=== PATIENT | female | born 1975 | race American Indian/Alaskan Native ===

== ENCOUNTER 2018-02-05 08:49 | Emergency (ER) | payer SELFPAY ==
[2018-02-05 09:23] VITALS: BP 130/81
--- NOTE | 2018-02-05 10:08 | Emergency Department Report ---
Blank Doc - Documentation Documentation: Patient is a 42-year-old Female states that she stood up this morning and felt a wave of dizziness as well as some tingling in the right upper extremity. Patient also felt as though her hand was drawn in. Patient states this has happened before but only lasts usually for several seconds and only after standing. Today it lasted almost 30 seconds before she started to feel normal again. The patient is having no deficits at this time. Brief physical exam patient has a normal neurological exam with normal strength and sensation with evidence of any neglect. Her coordination was within normal limits for cranial nerves are within normal limits. Patient will have electrolytes checked as well as orthostatics and patient will be reassessed by the [facility]
[2018-02-05 10:44] LABS: Basophils # (Auto) 0.1 K/mm3 (0.0-0.1); Eosinophils # (Auto) 0.1 K/mm3 (0.0-0.4); Hematocrit 41.5 % (30.3-42.9); Hemoglobin 13.7 gm/dl (10.1-14.3); Lymphocytes # (Auto) 1.8 K/mm3 (1.2-5.4); Lymphocytes % (Auto) 30.5 % (13.4-35.0); Mean Corpuscular HGB Conc 33 % (30-34); Mean Corpuscular Hemoglobin 30 pg (28-32); Mean Corpuscular Volume 92 fl (79-97); Monocytes # (Auto) 0.4 K/mm3 (0.0-0.8); Monocytes % (Auto) 6.8 % (0.0-7.3); Platelet Count 209 K/mm3 (140-440); Red Blood Count 4.51 M/mm3 (3.65-5.03); Red Cell Distribution Width 14.4 % (13.2-15.2)
--- NOTE | 2018-02-05 10:55 | Emergency Department Report ---
ED Abdominal Pain HPI - General Chief Complaint: Medical Clearance Stated Complaint: DIZZINESS Time Seen by Provider: 02/05/18 09:58 Source: patient Mode of arrival: Ambulatory Limitations: No Limitations - History of Present Illness Initial Comments: Patient is a 42-year-old Female states that she stood up this morning and felt a wave of dizziness as well as some tingling in the right upper extremity. Patient also felt as though her hand was drawn in. Patient states this has happened before but only lasts usually for several seconds and only after standing. Today it lasted almost 30 seconds before she started to feel normal again. The patient is having no deficits at this time. Brief physical exam patient has a normal neurological exam with normal strength and sensation with evidence of any neglect. Her coordination was within normal limits for cranial nerves are within normal limits. Patient will have electrolytes checked as well as orthostatics and patient will be reassessed by the [facility] - Related Data Previous Rx's Medication Instructions Recorded Last Taken Type Acetaminophen/Codeine 1 tab PO Q6H PRN #15 tab 07/31/14 Unknown Rx [Acetaminophen-Codeine #3 TAB] Diclofenac [Marylou Jimenez] 75 mg PO TID #21 tablet 07/31/14 Unknown Rx methOCARBAMOL [Robaxin] 500 mg PO Q6H PRN #20 tablet 07/31/14 Unknown Rx Allergies Allergy/AdvReac Type Severity Reaction Status Date / Time No Known Allergies Allergy Unverified 07/31/14 10:24 ED Review of Systems ROS: Stated complaint: DIZZINESS Other details as noted in HPI ED Past Medical Hx - Past Medical History Previous Medical History?: No - Surgical History Past Surgical History?: Yes Additional Surgical History: tonsillectomy. breast reduction/lift 12/2016 - Social History Smoking Status: Never Smoker Substance Use Type: None - Medications Home Medications: Home Medications Medication Instructions Recorded Confirmed Last Taken Type Acetaminophen/Codeine 1 tab PO Q6H PRN #15 tab 07/31/14 Unknown Rx [Acetaminophen-Codeine #3 TAB] Diclofenac [Marylou Jimenez] 75 mg PO TID #21 tablet 07/31/14 Unknown Rx methOCARBAMOL [Robaxin] 500 mg PO Q6H PRN #20 tablet 07/31/14 Unknown Rx ED Physical Exam - General Limitations: No Limitations ED Course Vital Signs 02/05/18 09:20 Temperature 98.4 F Pulse Rate 70 Respiratory 16 Rate Blood Pressure 130/81 O2 Sat by Pulse 100 Oximetry ED Medical Decision Making - Lab Data Result diagrams: 02/05/18 10:30 Critical care attestation.: If time is entered above; I have spent that time in minutes in the direct care of this critically ill patient, excluding procedure time. ED Disposition Condition: Stable Referrals: PRIMARY CARE, [Primary Care Provider] - 3-5 Days
--- NOTE | 2018-02-05 10:56 | Emergency Department Report ---
ED Dizziness HPI - General Chief Complaint: Medical Clearance Stated Complaint: DIZZINESS Time Seen by Provider: 02/05/18 09:58 Source: patient Mode of arrival: Ambulatory Limitations: No Limitations - History of Present Illness Initial Comments: Patient is a 42-year-old Female states that she stood up this morning and felt a wave of dizziness as well as some tingling in the right upper extremity. Patient also felt as though her hand was drawn in. Patient states this has happened before but only lasts usually for several seconds and only after standing. Today it lasted almost 30 seconds before she started to feel normal again. The patient is having no deficits at this time. He denies any headache or neck pain. Pain is 0-10. Denies any numbness to extremities. He does report that she had some tingling to her right arm and that her right arm folded. She said this was episodic and does not have that at present. MD Complaint: dizziness, lightheadedness -: This morning Timing: sudden onset Description: sense of movement, lightheadedness, off-balance History of Same: Yes History of Trauma: No Severity: moderate Improves With: rest Worsens With: movement, position Associated Symptoms: denies: ataxia, chest pain, confusion, cough, diaphoresis, fever/chills, loss of appetite, malaise, rash, seizure, shortness of breath, syncope, weakness - Related Data Previous Rx's Medication Instructions Recorded Last Taken Type Acetaminophen/Codeine 1 tab PO Q6H PRN #15 tab 07/31/14 Unknown Rx [Acetaminophen-Codeine #3 TAB] Diclofenac Dr [Marylou Jimenez] 75 mg PO TID #21 tablet 07/31/14 Unknown Rx methOCARBAMOL [Robaxin] 500 mg PO Q6H PRN #20 tablet 07/31/14 Unknown Rx Cetirizine HCl [ZyrTEC] 10 mg PO QDAY 21 Days #21 02/05/18 Unknown Rx tab.rapdis Allergies Allergy/AdvReac Type Severity Reaction Status Date / Time No Known Allergies Allergy Unverified 07/31/14 10:24 ED Review of Systems ROS: Stated complaint: DIZZINESS Other details as noted in HPI Constitutional: denies: chills, fever Eyes: denies: eye pain, eye discharge, vision change ENT: denies: ear pain, throat pain, congestion Respiratory: denies: cough, shortness of breath, SOB with exertion, SOB at rest , wheezing Cardiovascular: denies: chest pain, palpitations, edema, syncope Gastrointestinal: denies: abdominal pain, nausea, vomiting, diarrhea, constipation, hematemesis, melena, hematochezia Genitourinary: denies: urgency, dysuria, discharge Musculoskeletal: denies: back pain, joint swelling, arthralgia, myalgia Skin: denies: rash, lesions Neurological: paresthesias (right arm), vertigo. denies: headache, weakness, numbness, confusion, abnormal gait ED Past Medical Hx - Past Medical History Previous Medical History?: Yes Additional medical history: Dizziness and lightheadedness. - Surgical History Past Surgical History?: Yes Additional Surgical History: tonsillectomy. breast reduction/lift 12/2016 - Family History Family history: no significant - Social History Smoking Status: Never Smoker Substance Use Type: None - Medications Home Medications: Home Medications Medication Instructions Recorded Confirmed Last Taken Type Acetaminophen/Codeine 1 tab PO Q6H PRN #15 tab 07/31/14 Unknown Rx [Acetaminophen-Codeine #3 TAB] Diclofenac Dr [Voltaren Dr] 75 mg PO TID #21 tablet 07/31/14 Unknown Rx methOCARBAMOL [Robaxin] 500 mg PO Q6H PRN #20 tablet 07/31/14 Unknown Rx Cetirizine HCl [ZyrTEC] 10 mg PO QDAY 21 Days #21 02/05/18 Unknown Rx tab.rapdis ED Physical Exam - General Limitations: No Limitations General appearance: alert, in no apparent distress - Head Head exam: Present: atraumatic, normocephalic, normal inspection, other (normal exam) - Eye Eye exam: Present: normal appearance, PERRL, EOMI. Absent: nystagmus, periorbital swelling, periorbital tenderness Pupils: Present: normal accommodation - ENT ENT exam: Present: normal exam, normal orophraynx, mucous membranes moist, normal external ear exam, other (maxillary and frontal sinus is nontender to palpate. Bilateral nasal mucosa congested with erythema and clear drainage.). Absent: TM's normal bilaterally (bilateral TM congested without erythema .bilaterally EAC without any signs of infection.) - Neck Neck exam: Present: normal inspection, full ROM, other (no C-spine tenderness). Absent: tenderness, meningismus, lymphadenopathy - Respiratory Respiratory exam: Present: normal lung sounds bilaterally. Absent: respiratory distress, chest wall tenderness - Cardiovascular Cardiovascular Exam: Present: regular rate, normal rhythm, normal heart sounds. Absent: systolic murmur, diastolic murmur - GI/Abdominal GI/Abdominal exam: Present: soft, normal bowel sounds. Absent: distended, tenderness, guarding, rebound, rigid, organomegaly, mass, bruit, pulsatile mass , hernia - Extremities Exam Extremities exam: Present: normal inspection, full ROM, normal capillary refill , other (No cce. + 2 pulses in all extremities, no neurovascular compromise). Absent: tenderness, pedal edema, joint swelling, calf tenderness - Back Exam Back exam: Present: normal inspection, full ROM, other (ambulates without any difficulties). Absent: tenderness, CVA tenderness (R), CVA tenderness (L), muscle spasm, paraspinal tenderness, vertebral tenderness, rash noted - Neurological Exam Neurological exam: Present: alert, oriented X3, normal gait, motor sensory deficit. Absent: reflexes normal - Expanded Neurological Exam Expanded Neurological exam: Absent: innattentive, memory loss-remote event, memory loss- recent event, ataxia, receptive aphasia, expressive aphasia, total aphasia, tremor, protecting the airway Patient oriented to: Present: person, place, time Speech: Present: fluid speech Cranial nerves: EOM's Intact: Normal, Gag Reflex: Normal, Tongue Deviation: Normal, Nystagmus: Normal, Facial Sensation: Normal Cerebellar function: Romberg: Normal Upper motor neuron: Pronator Drift: Normal, Sensory Extinction: Normal Sensory exam: Upper Extremity Light Touch: Normal, Upper Extremity Temperature: Normal, UE 2 Point Discrimination: Normal, Lower Extremity Light Touch: Normal, Lower Extremity Temperature: Normal, LE 2 Point Discrimination: Normal Motor strength exam: RUE: 5, LUE: 5, RLE: 5, LLE: 5 DTR: bicep (R): 2+, bicep (L): 2+, tricep (R): 2+, tricep (L): 2+, knee (R): 2+ , knee (L): 2+, ankle (R): 2+, ankle (L): 2+ Best Eye Response ([place]): (4) open spontaneously Best Motor Response ([place]): (6) obeys commands Best Verbal Response ([place]): (5) oriented Neema Total: 15 - Psychiatric Psychiatric exam: Present: normal affect, normal mood - Skin Skin exam: Present: warm, dry, intact, normal color. Absent: rash ED Course Vital Signs 02/05/18 09:20 Temperature 98.4 F Pulse Rate 70 Respiratory 16 Rate Blood Pressure 130/81 O2 Sat by Pulse 100 Oximetry Lab Results 02/05/18 02/05/18 Range/Units 10:30 10:30 WBC 5.9 (4.5-11.0) K/mm3 RBC 4.51 (3.65-5.03) M/mm3 Hgb 13.7 (10.1-14.3) gm/dl Hct 41.5 (30.3-42.9) % MCV 92 (79-97) fl MCH 30 (28-32) pg MCHC 33 (30-34) % RDW 14.4 (13.2-15.2) % Plt Count 209 (140-440) K/mm3 Lymph % (Auto) 30.5 (13.4-35.0) % [place] % (Auto) 6.8 (0.0-7.3) % Eos % (Auto) 1.0 (0.0-4.3) % Baso % (Auto) 1.0 (0.0-1.8) % Lymph # 1.8 (1.2-5.4) K/mm3 [place] # 0.4 (0.0-0.8) K/mm3 Eos # 0.1 (0.0-0.4) K/mm3 Baso # 0.1 (0.0-0.1) K/mm3 Seg Neutrophils % 60.7 (40.0-70.0) % Seg Neutrophils # 3.6 (1.8-7.7) K/mm3 Sodium 140 (137-145) mmol/L Potassium 4.9 (3.6-5.0) mmol/L Chloride 103.2 (98-107) mmol/L Carbon Dioxide 24 (22-30) mmol/L Anion Gap 18 mmol/L BUN 12 (7-17) mg/dL Creatinine 0.7 (0.7-1.2) mg/dL Estimated GFR > 60 ml/min BUN/Creatinine Ratio 17 % Glucose 92 (65-100) mg/dL Calcium 9.1 (8.4-10.2) mg/dL Magnesium 2.30 (1.7-2.3) mg/dL - Reevaluation(s) Reevaluation #1: 02/05/18 13:55 Had uneventful ED stay. ED Medical Decision Making - Lab Data Result diagrams: 02/05/18 10:30 02/05/18 10:30 Lab Results 02/05/18 02/05/18 02/05/18 Range/Units 10:30 10:30 11:17 WBC 5.9 (4.5-11.0) K/mm3 RBC 4.51 (3.65-5.03) M/mm3 Hgb 13.7 (10.1-14.3) gm/dl Hct 41.5 (30.3-42.9) % MCV 92 (79-97) fl MCH 30 (28-32) pg MCHC 33 (30-34) % RDW 14.4 (13.2-15.2) % Plt Count 209 (140-440) K/mm3 Lymph % (Auto) 30.5 (13.4-35.0) % [place] % (Auto) 6.8 (0.0-7.3) % Eos % (Auto) 1.0 (0.0-4.3) % Baso % (Auto) 1.0 (0.0-1.8) % Lymph # 1.8 (1.2-5.4) K/mm3 [place] # 0.4 (0.0-0.8) K/mm3 Eos # 0.1 (0.0-0.4) K/mm3 Baso # 0.1 (0.0-0.1) K/mm3 Seg Neutrophils % 60.7 (40.0-70.0) % Seg Neutrophils # 3.6 (1.8-7.7) K/mm3 Sodium 140 (137-145) mmol/L Potassium 4.9 (3.6-5.0) mmol/L Chloride 103.2 (98-107) mmol/L Carbon Dioxide 24 (22-30) mmol/L Anion Gap 18 mmol/L BUN 12 (7-17) mg/dL Creatinine 0.7 (0.7-1.2) mg/dL Estimated GFR > 60 ml/min BUN/Creatinine Ratio 17 % Glucose 92 (65-100) mg/dL Calcium 9.1 (8.4-10.2) mg/dL Magnesium 2.30 (1.7-2.3) mg/dL Urine Color (Yellow) Urine Turbidity (Clear) Urine pH (5.0-7.0) Ur Specific [place] (1.003-1.030) Urine Protein (Negative) mg/dL Urine Glucose (UA) (Negative) mg/dL Urine Ketones (Negative) mg/dL Urine Blood (Negative) Urine Nitrite (Negative) Urine Bilirubin (Negative) Urine Urobilinogen (<2.0) mg/dL Ur Leukocyte Esterase (Negative) Urine WBC (Auto) (0.0-6.0) /HPF Urine RBC (Auto) (0.0-6.0) /HPF U Epithel Cells (Auto) (0-13.0) /HPF Urine Bacteria (Auto) (Negative) /HPF Urine Mucus /HPF Urine HCG, Qual Negative (Negative) 02/05/18 Range/Units 11:17 WBC (4.5-11.0) K/mm3 RBC (3.65-5.03) M/mm3 Hgb (10.1-14.3) gm/dl Hct (30.3-42.9) % MCV (79-97) fl MCH (28-32) pg MCHC (30-34) % RDW (13.2-15.2) % Plt Count (140-440) K/mm3 Lymph % (Auto) (13.4-35.0) % [place] % (Auto) (0.0-7.3) % Eos % (Auto) (0.0-4.3) % Baso % (Auto) (0.0-1.8) % Lymph # (1.2-5.4) K/mm3 [place] # (0.0-0.8) K/mm3 Eos # (0.0-0.4) K/mm3 Baso # (0.0-0.1) K/mm3 Seg Neutrophils % (40.0-70.0) % Seg Neutrophils # (1.8-7.7) K/mm3 Sodium (137-145) mmol/L Potassium (3.6-5.0) mmol/L Chloride (98-107) mmol/L Carbon Dioxide (22-30) mmol/L Anion Gap mmol/L BUN (7-17) mg/dL Creatinine (0.7-1.2) mg/dL Estimated GFR ml/min BUN/Creatinine Ratio % Glucose (65-100) mg/dL Calcium (8.4-10.2) mg/dL Magnesium (1.7-2.3) mg/dL Urine Color Yellow (Yellow) Urine Turbidity Clear (Clear) Urine pH 5.0 (5.0-7.0) Ur Specific [place] 1.010 (1.003-1.030) Urine Protein <15 mg/dl (Negative) mg/dL Urine Glucose (UA) Negative (Negative) mg/dL Urine Ketones Negative (Negative) mg/dL Urine Blood Trace (Negative) Urine Nitrite Negative (Negative) Urine Bilirubin Negative (Negative) Urine Urobilinogen < 2.0 (<2.0) mg/dL Ur Leukocyte Esterase Negative (Negative) Urine WBC (Auto) 1.0 (0.0-6.0) /HPF Urine RBC (Auto) 7.0 (0.0-6.0) /HPF U Epithel Cells (Auto) 2.0 (0-13.0) /HPF Urine Bacteria (Auto) 1+ (Negative) /HPF Urine Mucus Few /HPF Urine HCG, Qual (Negative) Urine culture sent - EKG Data -: EKG Interpreted by Me (disposition) EKG shows normal: sinus rhythm Rate: normal (4 bpm) - EKG Data Interpretation: no acute changes, normal EKG - Medical Decision Making This is a 42-year-old female here reported that she had episodic dizziness and lightheadedness with tingling sensation going down her right arm this morning. She says she has had similar episode in the past. Denies any head injury or headache. Denies any nausea vomiting or difficulty breathing. Denies any medical problems. Last menstrual cycle was 01/21/2018. Patient is here to be evaluated She was screened by Dr. Rigo Saenz and orders placed. I examined patient and she has normal neurological exam, head and neck is normal, she has bilateral TM with congestion and no erythema and bilateral nasal mucosa congested with erythema and nasal drainage. All other physical findings are normal Patient has CBC, CMP and urinalysis down which are all stable. She had EKG done which shows sinus rhythm at 64 bpm with no acute ST abnormalities. I discussed the patient and her CT results and lab results and she voiced understanding. I discussed with her she will need to [facility] as she does not have a primary care for follow-up dizziness. Dizziness and lightheadedness, episodic- resolved. She did not need any medication in emergency room. Lab work within normal limits. Her eardrums or congested so suspect vestibular imbalance. Patient will be placed on Zyrtec. She is already taken Flonase. Allergic rhinitis-today to take Flonase and started Zyrtec. Patient given a referral to Dr. Gentile, neurologists She was also given referral to [facility] for primary care Patient discharged home from emergency room in stable condition. Her vital signs are stable and she is afebrile and she is currently not experiencing any dizziness or lightheadedness. I add Zyrtec to her regime as she is already taken Flonase. I discussed her to her to take the Zyrtec once a day for 21 days as this difficult to relieve congestion she eardrums. She voiced understanding. She also knows that she is to follow-up with neurologists and [facility] in 3 days. Patient discharged from emergency room with prescription for Zyrtec. Critical care attestation.: If time is entered above; I have spent that time in minutes in the direct care of this critically ill patient, excluding procedure time. ED Disposition Clinical Impression: Vestibular dizziness involving right inner ear Rhinitis, allergic Qualifiers: Allergic rhinitis trigger: unspecified Allergic rhinitis seasonality: unspecified Qualified Code(s): J30.9 - Allergic rhinitis, unspecified Disposition: DC-01 TO HOME OR SELFCARE Is pt being admited?: No Does the pt Need Aspirin: No Condition: Stable Instructions: Allergic Rhinitis (ED), Dizziness (ED) Additional Instructions: Follow-up with primary care physician in 3 days. See discharge instruction for referral to [facility] If your condition worsens to include difficulty breathing, swallowing, chest pain, turn and dizziness, nausea and vomiting and fever, please return to the emergency room [facility]. Take Zyrtec and continue to take Flonase for congestion Increasing fluid intake Use nasal saline wash to flush and nostrils. Follow-up with neurologist as instructed Prescriptions: Cetirizine HCl [ZyrTEC] 10 mg PO QDAY 21 Days #21 tab.rapdis Referrals: PRIMARY CARE, [Primary Care Provider] - 3-5 Days
[2018-02-05 11:08] LABS: BUN/Creatinine Ratio 17; Blood Urea Nitrogen 12 mg/dL (7-17); Calcium 9.1 mg/dL (8.4-10.2); Hemolysis Index 4
[2018-02-05 12:14] LABS: HCG Qualitative,Urine Negative (Negative)
[2018-02-05 12:34] LABS: Bilirubin,Urine Negative (Negative); Blood,Urine Trace (Negative); Color,Urine Yellow (Yellow)
[2018-02-05 12:35] LABS: Protein,Urine <15 mg/dL mg/dL (Negative); Urobilinogen,Urine < 2.0 mg/dL (<2.0)
[2018-02-05 13:03] LABS: Bacteria,Urine 1+ /HPF (Negative); Mucus,Urine FEW /HPF
== END 2018-02-05 14:13 | disposition home or self-care (01) ==
LOC: ED 08:49
DX: H81.311 Aural vertigo, right ear (principal); J30.9 Allergic rhinitis, unspecified; R20.2 Paresthesia of skin; Z90.89 Acquired absence of other organs
CPT/HCPCS: 36415; 80048; 81001; 81025; 83735; 85025; 87086; 93005; 93010; 99283